=== PATIENT | female | born 1940 | race Two or more races ===

== ENCOUNTER → 2017-11-03 | Emergency (ER) | payer OTHER ==
[~2017-11-03] VITALS: Ht 167.6 cm; Wt 80.7 kg
[~2017-11-03] MED LIST: ATENOLOL50 MG; AVAPRO150 MG PO; GABAPENTIN800 MG; MACROBID 100 M100 MG PO; NITROFURANTOIN50 MG PO; PERCOCET 5-3251 EACH; SYNTHROID50 MCG PO; ULTRACET PO; VOLTAREN100 GM
== END | disposition home or self-care (01) ==
LOC: ER 10:21
DX: N39.0 Urinary tract infection, site not specified (principal); R31.9 Hematuria, unspecified; B96.20 Unspecified Escherichia coli [E. coli] as the cause of diseases classified elsewhere

== ENCOUNTER → 2019-03-20 | Outpatient (CLI) | payer OTHER | END | disposition home or self-care (01) | LOC: MAMO-SONO 12:28 | DX: R10.30 Lower abdominal pain, unspecified (principal) ==

== ENCOUNTER → 2025-07-12 | Emergency (ER) | payer OTHER ==
[~2025-07-12] VITALS: Ht 165.1 cm; Wt 81.6 kg
== END | disposition home or self-care (01) ==
LOC: ER 08:50
DX: S01.81XA Laceration without foreign body of other part of head, initial encounter (principal); W06.XXXA Fall from bed, initial encounter; Y93.89 Activity, other specified; Y92.013 Bedroom of single-family (private) house as the place of occurrence of the external cause; Y99.9 Unspecified external cause status; I10 Essential (primary) hypertension; E03.9 Hypothyroidism, unspecified; Z88.0 Allergy status to penicillin; Z88.8 Allergy status to other drugs, medicaments and biological substances

== ENCOUNTER 2025-07-20 08:31 | Emergency (ER) | payer OTHER ==
[~2025-07-20] VITALS: Ht 165.1 cm; Wt 81.6 kg
== END 2025-07-20 09:58 | disposition home or self-care (01) ==
LOC: ER 08:31
DX: Z48.02 Encounter for removal of sutures (principal); Z88.0 Allergy status to penicillin; Z88.2 Allergy status to sulfonamides